=== PATIENT | female | born 1940 | race Caucasian/White ===

== ENCOUNTER → 2016-12-26 | Outpatient (CLI) | payer OTHER ==
[~2016-12-26] MED LIST: BRIN1SUS OP; TRAV0.00 OPB
--- NOTE | 2016-12-26 15:22 | DIAGNOSTIC IMAGING REPORT ---
CHEST 2 VIEWS ROUTINE CLINICAL HISTORY: COUGH R05 COMPARISON STUDY: No previous studies for comparison. FINDINGS: The cardiac and mediastinal contours are normal. There is no evidence of focal pulmonary consolidation. There is no evidence of failure. No pleural effusions are visualized.[ Linear opacities at the left lung base are felt to be atelectatic. IMPRESSION: Minor left basilar atelectasis. Otherwise negative chest. Electronically signed by: Paul Bhatia M.D. 12/26/2016 3:21 PM Dictated Date/Time: 12/26/2016 3:20 PM
== END | disposition home or self-care (01) ==
LOC: C.RAD1850 14:56
PROVIDERS: ATTEND Family Medicine
DX: R05 Cough (principal)

== ENCOUNTER → 2017-05-10 | Outpatient (CLI) | payer OTHER ==
--- NOTE | 2017-05-10 12:17 | MAMMOGRAPHY REPORT ---
BILATERAL DIGITAL SCREENING MAMMOGRAM WITH CAD: 05/10/2017 CLINICAL HISTORY: Routine screening. TECHNIQUE: Bilateral CC and MLO views were obtained. Current study was also evaluated with a Compute r Aided Detection (CAD) system. COMPARISON: Comparison is made to exams dated: 05/04/2016 mammogram, 04/28/2015 mammogram, 03/24/2014 kinza mogram, and 11/28/2012 mammogram - [facility]. BREAST COMPOSITION: The tissue of both breasts is heterogeneously dense, which may obscure small mas ses. FINDINGS: A linear scar marker overlies the 12:00 posterior left breast. There are a few benign coar se calcifications and numerous bilateral punctate benign-appearing microcalcifications in the breasts . No suspicious mass, architectural distortion or cluster of suspicious microcalcifications is seen. IMPRESSION: ACR BI-RADS CATEGORY 1: NEGATIVE There is no mammographic evidence of malignancy. A 1 year screening mammogram is recommended. The pa tient will receive written notification of the results. Approximately 10% of breast cancers are not detected with mammography. A negative mammographic report should not delay biopsy if a clinically suggestive mass is present. Maria Isabel Valenzuela M.D. ay/:05/10/2017 12:03:26 Log Roller: Stanton BALDERRAMA(Chandler)(Carissa), [facility] letter sent: Normal 1/2 BI-RADS Code: ACR BI-RADS Category 1: Negative
== END | disposition home or self-care (01) ==
LOC: C.MAMM 10:35
PROVIDERS: ATTEND Family Medicine
DX: Z12.31 Encounter for screening mammogram for malignant neoplasm of breast (principal)

== ENCOUNTER → 2017-06-19 | Outpatient (CLI) | payer OTHER ==
[2017-06-19 10:14] LABS: ALT/SGPT 25 U/L (12-78); BLOOD UREA NITROGEN 13 mg/dl (7-18); CALCIUM 9.3 mg/dl (8.5-10.1); CARBON DIOXIDE 30 mmol/L (21-32); CHLORIDE 106 mmol/L (98-107); CHOLESTEROL 166 mg/dl (0-200); CREATININE 0.83 mg/dl (0.60-1.20); GLUCOSE 101 mg/dl (70-99); POTASSIUM 4.1 mmol/L (3.5-5.1); SODIUM 142 mmol/L (136-145)
[2017-06-19 10:17] LABS: ALB/GLOB RATIO 0.9 (0.9-2); ALKALINE PHOSPHATASE 95 U/L (45-117); AST/SGOT 19 U/L (15-37); CHOLESTEROL/HDL RATIO 4.2; HDL CHOLESTEROL 40 mg/dl; LDL CHOLESTEROL CALCULATED 103 mg/dl; TRIGLYCERIDES 117 mg/dl (0-150); VERY LOW DENSITY LIPOPROT CALC 23 mg/dl
== END | disposition home or self-care (01) ==
LOC: C.LAB 08:43
PROVIDERS: ATTEND Family Medicine
DX: Z00.00 Encounter for general adult medical examination without abnormal findings (principal); E78.5 Hyperlipidemia, unspecified

== ENCOUNTER → 2017-06-28 | Outpatient (CLI) | payer OTHER ==
--- NOTE | 2017-06-28 15:49 | MAMMOGRAPHY REPORT ---
ULTRASOUND OF BOTH BREASTS: 06/28/2017 CLINICAL HISTORY: The patient reports no current complaints. She is here for screening breast ultras ound due to dense breasts. COMPARISON: Comparison is made to exams dated: 05/10/2017 mammogram, 05/04/2016 mammogram, 04/28/2015 ma mmogram, 03/24/2014 mammogram, and 11/28/2012 mammogram - [facility]. TECHNIQUE: Real-time ultrasound of both breasts was performed. FINDINGS: Real-time, high resolution ultrasound was performed of bilateral breasts and axillae including all 4 quadrants and subareolar regions. Sonographically normal tissue is noted, without evidence of a mass or other suspicious sonographic abnormality. There is no evidence of axillary adenopathy. IMPRESSION: ACR BI-RADS CATEGORY 2: BENIGN There is no sonographic evidence of malignancy in either breast. Return to annual mammogram screenin g schedule is recommended, due April 2018. The patient was verbally notified of the results. Jackeline Braxton M.D. ah/:06/28/2017 14:28:05 Guest Laundry Attendant: Rose BALDERRAMA(R)(Carissa), [facility] letter sent: Normal 1/2 BI-RADS Code: ACR BI-RADS Category 2: Benign
== END | disposition home or self-care (01) ==
LOC: C.MAMM 13:50
PROVIDERS: ATTEND Family Medicine
DX: Z12.31 Encounter for screening mammogram for malignant neoplasm of breast (principal)

== ENCOUNTER → 2017-10-07 | Day surgery (SDC) | payer OTHER ==
[2017-10-01 10:33] VITALS: Ht 160 cm; Wt 59.1 kg
[~2017-10-07] VITALS: Ht 160 cm; Wt 59.1 kg
[~2017-10-07] MED LIST changes: +ACETAMINOPHEN 325 MG TAB PO PRN; +AMVISC PLUS 0.8ML SYRINGE INT OCU ONE; +ATROPINE SULFATE 0.1 MG/ML 5ML SYR IV PRN; +BRIMONIDINE TART 0.2% OP SOLN PER DROP CHARGE ONE; +BRIMONIDINE TARTRATE 0.2% 5ML ONE; +BSS FLUSH ONE; +ENDOCOAT 0.85ML SYRINGE INT OCU ONE; +EpHEDrine SULFATE INJ 50 MG/ML AMP IV PRN; +EpINEphrine INJ 1MG/ML AMP 1 MG/ML AMP ONE; +FENTANYL CITRATE INJ 50 MCG/1 ML 2 ML VIAL ONE; +LACTATED RINGER'S 1000ML 500 ML IV SCH; +LIDOCAINE 4% OP SOLN DROP CHARGE ONE; +LIDOCAINE 4% OP SOLN DROP CHARGE OPL SCH; +LIDOCAINE MPF 1% INJ 30 ML SDV (L&D) INFIL ONE; +MIDAZOLAM HCL 1 MG/ML 2ML VIAL ONE; +MOXIFLOXACIN OPH SOLN PER DROP CHARGE ONE; +POVIDONE-IODINE OP SOLN 30 ML BTL ONE; +PROPARACAINE 0.5% OP SOLN PER DROP CHARGE OPL SCH; +PROPARACAINE HCL 0.5% OP SOLN 15 ML BTL OPL ONE; +PROPOFOL IV EMULSION 10 MG/ML 20 ML VIAL IV ONE; +TOBRAMYCIN/DEXAMETHASONE OPH OINT PER APPLN CHARGE ONE
[2017-10-07] MEDS: PHENYLEPHRINE HCL 2.5% OP SOLN PER DROP CHARGE OPL SCH ×2 (06:40→06:45)
[2017-10-07] MEDS: CYCLOPENTOLATE HCL 1% OP SOLN PER DROP CHARGE OPL SCH ×2 (06:41→06:46)
[2017-10-07] MEDS: TROPICAMIDE 1% OP SOLN PER DROP CHARGE OPL SCH ×2 (06:41→06:45)
[2017-10-07] MEDS: KETOROLAC 0.5% OP SOLN PER DROP CHARGE OPL SCH ×2 (06:42→06:46)
[2017-10-07] MEDS: MOXIFLOXACIN OPH SOLN PER DROP CHARGE OPL SCH ×2 (06:43→06:54)
--- NOTE | 2017-10-07 06:57 | History & Physical Bridge - [place] ---
H&P Re-Evaluation Bridge Note: I have examined the patient, reviewed the History & Physical and in the interval since the performance of the History & Physical I have noted the following changes of clinical significance: No changes noted
--- NOTE | 2017-10-07 08:00 | Discharge Instructions-SurgCtr ---
Discharge Instructions Date of Service Oct 07, 2017. Visit Reason for Visit: Cataract Left Eye, Glaucoma Discharge Discharge Diagnosis / Problem: cataract and glaucoma left eye Discharge Goals Goal(s): Improve function Activity Recommendations Activity Limitations: per Instructions/Follow-up section Lifting Limitations: no more than 5 pounds Anesthesia . Post Anesthesia Instructions: If you have had General Anesthesia or IV Sedation: * Do not drive today. * Resume driving when surgeon permits. * Do not make important decisions or sign legal documents today. * Call surgeon for: 1. Temperature elevations greater than 101 degrees F. 2. Uncontrollable pain. 3. Excessive bleeding. 4. Persistent nausea and vomiting. 5. Medication intolerance (nausea, vomiting or rash). * For nausea and vomiting use only clear liquids such as: tea, soda, bouillon until nausea subsides, then gradually increase diet as tolerated. * If you have any concerns or questions, call your surgeon's office. If physician is unavailable and it is an emergency, call 911 or go to the nearest emergency room. . Instructions / Follow-Up Instructions / Follow-Up ACTIVITY RECOMMENDATIONS: * Light activities * You may walk outside, read, watch television. * Mild irritation and blurred vision are common for the first few days, redness around the white part of the eye is common. MEDICATIONS: Resume previous medications unless instructed otherwise by your surgeon. Eye drops (today and tomorrow): Vigamox - one drop in operative eye every 2 hours while awake Prednisolone 1% - one drop in operative eye every 2 hours while awake Ilevro - one drop operative eye 1 times daily SPECIAL CARE INSTRUCTIONS: * If any problems or concerns, please call Dr. Morgan's office at . * Keep plastic shield taped over eye to sleep at night. * Keep plastic shield taped over eye except to administer eye drops. * Keep plastic shield on until office visit the following day. FOLLOW UP VISIT: Follow-up with Dr. Morgan in the [place] office as scheduled. If not already scheduled, please call the office at . Diet Recommendations Home Diet: resume previous diet Procedures Procedures Performed: Left Cataract Phacoemulsification With Intraocular Lens Implant; Toric Lens, Cypass Stent Pending Studies Studies pending at discharge: no Medical Emergencies . Who to Call and When: Medical Emergencies: If at any time you feel your situation is an emergency, please call 911 immediately. . Non-Emergent Contact Non-Emergency issues call your: Maternity Floor Supervisor . . "Provider Documentation" section prepared by Christoph Morgan. .
--- NOTE | 2017-10-07 08:01 | [facility] Post Operative Brief Note ---
Immediate Operative Summary Operative Date Oct 07, 2017. Pre-Operative Diagnosis Cataract left eye and glaucoma left eye Post-Operative Diagnosis Same Procedure(s) Performed Left Cataract Phacoemulsification With Intraocular Lens Implant; Toric Lens, Cypass Stent Surgeon Tube Trailer Filler Surgeon(s) None Estimated Blood Loss Zero Findings cataract left eye Fluids (cc crystalloids) see anesthesia record Specimens None Drains none Anesthesia local with sedation Complication(s) None Disposition Recovery Room / PACU
[2017-10-07 09:14] VITALS: BP 114/76; PULSE 57; TEMP 36.4; O2SAT 99
--- NOTE | 2017-10-07 09:22 | Anesthesia Progress Nt - [facility] ---
Anesthesia Post Op Note Date & Time Oct 07, 2017 at 09:22 Vital Signs Pain Intensity: 2.0 Vital Signs Past 12 Hours Date Time Temp Pulse Resp B/P (MAP) Pulse Ox O2 Delivery O2 Flow Rate FiO2 10/07/17 09:14 36.4 57 18 114/76 (89) 99 Room Air 10/07/17 08:33 36.1 66 18 106/65 (79) 95 Room Air 10/07/17 08:31 126/70 10/07/17 08:30 36.1 69 17 126/70 95 Room Air 10/07/17 08:29 64 23 10/07/17 08:29 65 23 96 10/07/17 08:26 106/63 10/07/17 08:24 66 9 10/07/17 08:24 65 9 94 10/07/17 08:21 36.2 67 14 112/61 94 Room Air 10/07/17 08:21 112/61 10/07/17 08:19 62 12 10/07/17 08:19 58 12 96 10/07/17 08:16 99/61 10/07/17 08:14 63 14 10/07/17 08:14 64 14 99 10/07/17 08:11 98/54 10/07/17 08:09 63 7 95 10/07/17 08:09 62 7 10/07/17 08:06 96/60 10/07/17 08:05 97/55 10/07/17 08:04 63 7 10/07/17 08:04 66 7 97 10/07/17 08:04 36.0 60 12 97/55 97 Mask 6 10/07/17 07:21 74 16 137/73 93 10/07/17 07:14 75 16 144/74 94 10/07/17 06:27 36.7 75 20 116/67 (83) 97 Room Air Notes Mental Status: alert / awake / arousable, participated in evaluation Pt Amnestic to Procedure: Yes Nausea / Vomiting: adequately controlled Pain: adequately controlled Airway Patency, RR, SpO2: stable & adequate BP & HR: stable & adequate Hydration State: stable & adequate Anesthetic Complications: no major complications apparent
--- NOTE | 2017-10-07 10:01 | OPERATIVE REPORT ---
DATE OF OPERATION: 10/07/2017 PREOPERATIVE DIAGNOSIS: Cataract, glaucoma, and astigmatism left eye. POSTOPERATIVE DIAGNOSIS: Same. PROCEDURE PERFORMED: Phacoemulsification cataract extraction with Toric intraocular lens placement with the use of femtosecond laser as well as CyPass glaucoma shunt, left eye. COMPLICATIONS: None. ESTIMATED BLOOD LOSS: None. ANESTHESIA: Local with sedation. DESCRIPTION OF PROCEDURE: After informed consent was obtained in the holding area, the patient was taken to the femtosecond laser room where the left eye was docked with the femtosecond laser. The laser was used to make the primary incision at the 0 degree axis of the patient's left eye as well as the capsulorrhexis and prechop of the lens. The eye was then undocked from the laser and the patient was taken to the operating room where cardiac monitoring leads and oxygen by nasal cannula was administered by anesthesia. Gentle IV sedation was given, and the patient's left eye was prepped and draped in usual sterile fashion. A wire lid speculum was placed in the left eye and the operating microscope swung into position. Using 0.12 forceps and a supersharp blade, a paracentesis port was made at the 5 o'clock position of the patient's left eye. 1% nonpreserved lidocaine was injected into the anterior chamber for anesthesia. EndoCoat was then injected into the anterior chamber. The primary incision was then entered using a Felipe spatula. The free floating capsulorrhexis cap was then removed with Utrata forceps. Amvisc was then injected over the top of the lens. The BSS on a hydrodissection cannula was then used to hydrodissect the lens nucleus away from the capsular bag. The phacoemulsification handpiece was then used in a stop and chop fashion to remove the lens nucleus. Irrigation aspiration handpiece was then used to remove the cortical material. The eye was then filled with Amvisc. The main incision enlarged slightly and an RISA ETI723 14.5 Diopter intraocular lens was injected into the capsular bag. The lens was rotated into position along the 56 degree axis of the patient's left eye with markings made in preop. The head was then rotated away from me and the microscope was rotated towards me and using a gonioprism for visualization, a CyPass Micro-Stent was then placed across the anterior chamber into approximately the 8 o'clock position of the patient's left eye at the junction between the scleral spur and the ciliary body. It was tapped into position so that one ring remained in the anterior chamber. The primary incision was then hydrated and the irrigation-aspiration handpiece was used to remove the viscoelastic material from the eye. The wounds were noted to be watertight. The patient was noted to have an inferior subconjunctival hemorrhage of the left eye, likely caused by the gonioprism. Wire lid speculum was removed from the eye. Vigamox and TobraDex ointment were placed on the eye and the eye was shielded. The patient tolerated the procedure well and was taken to recovery area in stable condition. I attest to the content of the Intraoperative Record and any orders documented therein. Any exceptions are noted below. CAM
== END | disposition home or self-care (01) ==
LOC: X.SURG 06:15
PROVIDERS: ATTEND Ophthalmology
DX: H26.9 Unspecified cataract (principal); H40.9 Unspecified glaucoma; H52.202 Unspecified astigmatism, left eye
CPT/HCPCS: 0474T; 66984

== ENCOUNTER → 2017-12-09 | Day surgery (SDC) | payer OTHER ==
[2017-11-19 10:05] VITALS: Ht 160 cm; Wt 59.1 kg
[~2017-12-09] VITALS: Ht 160 cm; Wt 59.1 kg
[~2017-12-09] MED LIST changes: -AMVISC PLUS 0.8ML SYRINGE INT OCU ONE; +ASCA500 PO; +AcetylCHOLine CHL OP SOL 1:100 2 ML BTL ONE; -BRIMONIDINE TARTRATE 0.2% 5ML ONE; -BSS FLUSH ONE; +CALC600T9 PO; -ENDOCOAT 0.85ML SYRINGE INT OCU ONE; -LIDOCAINE 4% OP SOLN DROP CHARGE OPL SCH; +LIDOCAINE 4% OP SOLN DROP CHARGE OPR SCH; +LIDOCAINE HCL 1% MPF 2 ML VIAL ONE; -LIDOCAINE MPF 1% INJ 30 ML SDV (L&D) INFIL ONE; +MULT-506 PO; +OMEG10007 PO; -PROPARACAINE 0.5% OP SOLN PER DROP CHARGE OPL SCH; +PROPARACAINE 0.5% OP SOLN PER DROP CHARGE OPR SCH; -PROPARACAINE HCL 0.5% OP SOLN 15 ML BTL OPL ONE; -PROPOFOL IV EMULSION 10 MG/ML 20 ML VIAL IV ONE
[2017-12-09] MEDS: PHENYLEPHRINE HCL 2.5% OP SOLN PER DROP CHARGE OPR SCH ×2 (09:40→09:46)
[2017-12-09] MEDS: TROPICAMIDE 1% OP SOLN PER DROP CHARGE OPR SCH ×2 (09:41→09:47)
[2017-12-09] MEDS: CYCLOPENTOLATE HCL 1% OP SOLN PER DROP CHARGE OPR SCH ×2 (09:42→09:48)
[2017-12-09] MEDS: KETOROLAC 0.5% OP SOLN PER DROP CHARGE OPR SCH ×2 (09:43→09:49)
[2017-12-09] MEDS: MOXIFLOXACIN OPH SOLN PER DROP CHARGE OPR SCH ×2 (09:44→09:54)
--- NOTE | 2017-12-09 11:11 | [facility] Post Operative Brief Note ---
Immediate Operative Summary Operative Date Dec 09, 2017. Pre-Operative Diagnosis Cataract Right Eye and Glaucoma Post-Operative Diagnosis Same Procedure(s) Performed Right Cataract Phacoemulsification With Intraocular Lens Implant; Cypass Stent Surgeon Dr. Morgan Real Estate Lawyer Surgeon(s) None Estimated Blood Loss 0ml Findings Consistent with Post-Op Diagnosis Specimens None Drains None Anesthesia Type MAC Complication(s) none Disposition Accompanied Pt To Recovery: no Disposition: Recovery Room / PACU
--- NOTE | 2017-12-09 11:13 | Discharge Instructions-SurgCtr ---
Discharge Instructions Date of Service Dec 09, 2017. Visit Reason for Visit: Glaucoma And Cataract Right Eye Discharge Discharge Diagnosis / Problem: cataract and glaucoma right eye Discharge Goals Goal(s): Improve function Activity Recommendations Activity Limitations: per Instructions/Follow-up section Lifting Limitations: no more than 5 pounds Anesthesia . Post Anesthesia Instructions: If you have had General Anesthesia or IV Sedation: * Do not drive today. * Resume driving when surgeon permits. * Do not make important decisions or sign legal documents today. * Call surgeon for: 1. Temperature elevations greater than 101 degrees F. 2. Uncontrollable pain. 3. Excessive bleeding. 4. Persistent nausea and vomiting. 5. Medication intolerance (nausea, vomiting or rash). * For nausea and vomiting use only clear liquids such as: tea, soda, bouillon until nausea subsides, then gradually increase diet as tolerated. * If you have any concerns or questions, call your surgeon's office. If physician is unavailable and it is an emergency, call 911 or go to the nearest emergency room. . Instructions / Follow-Up Instructions / Follow-Up ACTIVITY RECOMMENDATIONS: * Light activities * You may walk outside, read, watch television. * Mild irritation and blurred vision are common for the first few days, redness around the white part of the eye is common. MEDICATIONS: Resume previous medications unless instructed otherwise by your surgeon. Eye drops (today and tomorrow): Vigamox - one drop in operative eye every 2 hours while awake Prednisolone 1% - one drop in operative eye every 2 hours while awake Ilevro - one drop operative eye 1 times daily SPECIAL CARE INSTRUCTIONS: * If any problems or concerns, please call Dr. Morgan's office at . * Keep plastic shield taped over eye to sleep at night. * Keep plastic shield taped over eye except to administer eye drops. * Keep plastic shield on until office visit the following day. FOLLOW UP VISIT: Follow-up with Dr. Morgan in the [place] office as scheduled. If not already scheduled, please call the office at . Diet Recommendations Home Diet: resume previous diet Procedures Procedures Performed: Right Cataract Phacoemulsification With Intraocular Lens Implant; Cypass Stent Pending Studies Studies pending at discharge: no Medical Emergencies . Who to Call and When: Medical Emergencies: If at any time you feel your situation is an emergency, please call 911 immediately. . Non-Emergent Contact Non-Emergency issues call your: Sales Account Director . . "Provider Documentation" section prepared by Christoph Morgan. .
--- NOTE | 2017-12-09 11:16 | [facility] Operative Report ---
Operative Report Operative Date Dec 09, 2017. Pre-Operative Diagnosis Cataract Right Eye and Glaucoma Post-Operative Diagnosis Same Procedure(s) Performed Right Cataract Phacoemulsification With Intraocular Lens Implant; Cypass Stent Surgeon Dr. Morgan Business Process Analyst Surgeon(s) None Estimated Blood Loss 0ml Findings cataract right eye Fluids see anesthesia record Specimens None Drains None Anesthesia Type MAC Complication(s) none Disposition no Recovery Room / PACU Indications decreased vision and glaucoma right eye Description of Procedure After informed consent was obtained in the holding area the patient was wheeled back to the operating room where cardiac monitoring leads and oxygen by nasal cannula was administered by Anesthesia. Gentle IV sedation was given, and the patient's right eye was prepped and draped in usual sterile fashion. A wire lid speculum was placed into the right eye and the operating microscope was swung into position. Using 0.12 forceps and a Supersharp blade a paracentesis port was made 2 o'clock hours away from the 9 o'clock position of the patient's right eye. 1% non-preserved Lidocaine was then injected into the anterior chamber for anesthesia. A 2.0 mm keratotome blade was then used to make a shelved clear corneal incision at the 9 o'clock position of the right eye. Amvisc was injected into the anterior chamber and a cystotome and Utrata forceps were used to perform a curvilinear capsulorrhexis. BSS on a hydrodissection cannula was used to hydrodissect the lens nucleus away from the capsular bag. The phacoemulsification handpiece was then used in a stop and chop fashion to remove the lens nucleus. The irrigation and aspiration handpiece was then used to remove the residual cortical material. Amvisc was injected into the capsular bag and anterior chamber and a [employer]ch [employer] Lomb MX60 14.0 Diopter intraocular lens was injected into the capsular bag. The head was then rotated away from wv and the scope was rotated down towards wv. Viscoelastic was placed on the cornea and the gonio prism was used so I could visualize the jamie across from the primary incision. The Cypass stent was placed at approximately the 2 o'clock position of the right eye. Irrigation and aspiration handpiece was used to remove the residual viscoelastic material. The wounds were hydrated and noted to be watertight. The wire lid speculum was removed from the eye. Vigamox, Brimonidine, and TobraDex ointment were placed on the eye and it was shielded. It should be noted that EndoCoat was used extensively during the case to protect the cornea endothelium. DISPOSITION: The patient tolerated the procedure well and was wheeled to the post anesthesia care unit in stable condition. I attest to the content of the Intraoperative Record and any orders documented therein. Any exceptions are noted below. I attest to the content of the Intraoperative Record and any orders documented therein. Any exceptions are noted below.
[2017-12-09 11:19] VITALS: TEMP 36.6
--- NOTE | 2017-12-09 11:37 | Anesthesiology Progress Note ---
Anesthesia Post Op Note Date & Time Dec 09, 2017 at 11:37 Vital Signs Pain Intensity: 0 Vital Signs Past 12 Hours Date Time Temp Pulse Resp B/P (MAP) Pulse Ox O2 Delivery O2 Flow Rate FiO2 12/09/17 11:19 36.6 75 16 102/64 (77) 95 Room Air 12/09/17 09:29 36.9 82 22 115/74 (88) 96 Room Air Notes Mental Status: alert / awake / arousable, participated in evaluation Nausea / Vomiting: adequately controlled Pain: adequately controlled Airway Patency, RR, SpO2: stable & adequate BP & HR: stable & adequate Hydration State: stable & adequate Anesthetic Complications: no major complications apparent
[2017-12-09 11:44] VITALS: BP 111/71; PULSE 70; O2SAT 97
== END | disposition home or self-care (01) ==
LOC: X.SURG 09:07
PROVIDERS: ATTEND Ophthalmology
DX: H25.11 Age-related nuclear cataract, right eye (principal); H40.059 Ocular hypertension, unspecified eye
CPT/HCPCS: 0474T; 66984

== ENCOUNTER → 2018-05-16 | Outpatient (CLI) | payer OTHER ==
[~2018-05-16] MED LIST changes: -ACETAMINOPHEN 325 MG TAB PO PRN; -ATROPINE SULFATE 0.1 MG/ML 5ML SYR IV PRN; -AcetylCHOLine CHL OP SOL 1:100 2 ML BTL ONE; -BRIMONIDINE TART 0.2% OP SOLN PER DROP CHARGE ONE; -EpHEDrine SULFATE INJ 50 MG/ML AMP IV PRN; -EpINEphrine INJ 1MG/ML AMP 1 MG/ML AMP ONE; -FENTANYL CITRATE INJ 50 MCG/1 ML 2 ML VIAL ONE; -LACTATED RINGER'S 1000ML 500 ML IV SCH; -LIDOCAINE 4% OP SOLN DROP CHARGE ONE; -LIDOCAINE 4% OP SOLN DROP CHARGE OPR SCH; -LIDOCAINE HCL 1% MPF 2 ML VIAL ONE; -MIDAZOLAM HCL 1 MG/ML 2ML VIAL ONE; -MOXIFLOXACIN OPH SOLN PER DROP CHARGE ONE; -POVIDONE-IODINE OP SOLN 30 ML BTL ONE; -PROPARACAINE 0.5% OP SOLN PER DROP CHARGE OPR SCH; -TOBRAMYCIN/DEXAMETHASONE OPH OINT PER APPLN CHARGE ONE
--- NOTE | 2018-05-16 15:40 | MAMMOGRAPHY REPORT ---
BILATERAL DIGITAL SCREENING MAMMOGRAM TOMOSYNTHESIS WITH CAD: 05/16/2018 CLINICAL HISTORY: Routine screening. TECHNIQUE: The study was acquired using full field digital technology and interpreted from soft copy. Breast tomosynthesis in addition to standard 2D mammography was performed. Current study was also ev aluated with a Computer Aided Detection (CAD) system. COMPARISON: Comparison is made to exams dated: 05/10/2017 mammogram, 05/04/2016 mammogram, 04/28/2015 ma mmogram, 03/24/2014 mammogram, 06/28/2017 ultrasound, and 11/28/2012 mammogram - [facility]. BREAST COMPOSITION: The tissue of both breasts is heterogeneously dense, which may obscure small mass es. FINDINGS: No suspicious masses, calcifications, or areas of architectural distortion are noted in either breast . There has been no significant interval change compared to prior exams. Scattered bilateral benign- appearing calcifications are not significantly changed. There is mild architectural distortion in th e right 12:00 breast, only well seen on the tomosynthesis images. This is located at the site of a l inear scar marker and therefore likely represents postsurgical changes. Another linear scar marker o verlies the left 12:00 breast. IMPRESSION: ACR BI-RADS CATEGORY 2: BENIGN There is no mammographic evidence of malignancy. A 1 year screening mammogram is recommended.( 019) The patient will receive written notification of the results. Some breast cancers are not detected with mammography. A negative mammographic report should not maisha y biopsy if a clinically suggestive mass is present. Jackeline Braxton M.D. ah/:05/16/2018 12:43:41 Window Systems Administrator: RT Destiney(Chandler)(M), [facility] letter sent: Normal 1/2 BI-RADS Code: ACR BI-RADS Category 2: Benign
== END | disposition home or self-care (01) ==
LOC: C.MAMM 10:24
PROVIDERS: ATTEND Family Medicine
DX: Z12.31 Encounter for screening mammogram for malignant neoplasm of breast (principal)